=== PATIENT | female | born 1935 | race Caucasian/White ===

== ENCOUNTER 2017-07-22 13:17 | Inpatient (IN) | payer MEDICARE ==
[~2017-07-22] VITALS: Ht 162.6 cm; Wt 54.0 kg
--- NOTE | 2017-07-22 13:17 | NUR ---
pt refuses any intervention, pt keeps saying " i do not want to be here, I want to go to [facility]".
--- NOTE | 2017-07-22 14:56 | NUR ---
CALLED [facility] AND SPOKE TO KENTRELL THE DIRECTOR OF THE FACILITY, WHOM INFORMED ME THAT DR KOO SENT THE PT TO BE MEDICALLY CLEARED AND THEN PET EVAL. PT REFUSING MEDS/CARE AT THE FACILITY
--- NOTE | 2017-07-22 15:06 | NUR ---
bs= 177
--- NOTE | 2017-07-22 16:02 | NUR ---
selwyn here talking to the er md.
--- NOTE | 2017-07-22 17:45 | NUR ---
perineal hygiene provided . small bm, redness and rashes groin area, pressure ulcer x2 left buttock
--- NOTE | 2017-07-22 18:12 | NUR ---
transfered pt to floor in stable condition. pt refused food requesting only water with ice.
[2017-07-22 18:27] VITALS: BP 138/89
--- NOTE | 2017-07-22 18:27 | NUR ---
RECEIVED PT WITH NECROSIS ON HER RIGHT HEEL AND LEFT HEEL REDNESS ,SACRAL AREA REDNESS AND PARTIAL THICKNESS AND FULL THICKNESS LOSS NOTED,WOUND CARE AND AIR MATTRESS ORDERED
--- NOTE | 2017-07-22 18:27 | NUR ---
PT RECEIVED FROM ER VIA [facility] .PT IS CONFUSED AND ALERT TO HER SELF .V/S ARE STABLE .PT IS ON 72 HRS HOLD
[2017-07-22] MEDS ORDERED: MAG HYDROX/AL HYDROX/SIMETH 30 ML LIQUID UDC PO PRN (18:30)
[2017-07-22] MEDS ORDERED: ACETAMINOPHEN 325 MG TABLET PO PRN (18:30)
[2017-07-22] MEDS ORDERED: TEMAZEPAM 7.5 MG CAPSULE PO PRN (18:30)
[2017-07-22] MEDS ORDERED: MAGNESIUM HYDROXIDE 30 ML LIQUID UDC PO PRN (18:30)
--- NOTE | 2017-07-22 18:57 | NUR ---
PT WAS ADMITTED TO UNIT AT 1830 VIA GURNEY AT 1830. PT IS NON AMBULATORY AND NON COOPERATIVE. PT HAS MULTIPLE OPEN AREAS AND REDDNESS ON SACRAL AREA, OPEN AREA AND REDNESS ON R BUTTOX, THICK TONAILS ON BOTH FEET WITH BLACKENED AREAS AROUND TOENAILS, OPEN AREAS AND REDNESS ON BILATERAL GROIN, SKIN LOSS ON L HEEL, AND NECROTIC AREA ON R HEEL. PICTURES TAKEN AND PLACED IN CHART. AIR MATTRESS ORDERED, WOUND CONSULT ORDERED, PLACED PT ON TURN Q 2 HOURS SCHEDULE, DIETARY CONSULT ORDERED. PT IS CONFUSED, AGGITATED, SCREAMING. PT CAME FROM [facility], WAS THERE FOR ONE WEEK AND REFUSED MEDS AND CARE ALL WEEK. PT IS ON [address] KHAN NOTIFIED OF ADMISSION.
[2017-07-22 20:09] VITALS: BP 162/70
[2017-07-22] MEDS ORDERED: ASPI81TA31 PO (20:28)
[2017-07-22] MEDS ORDERED: FELO10TA3 PO (20:28)
[2017-07-22] MEDS ORDERED: METF500T4 PO (20:28)
[2017-07-22] MEDS: Z GUARD REMEDY PASTE 57 GM TUBE TOP SCH (20:28)
[2017-07-22] MEDS ORDERED: GLYB5TAB7 PO (20:28)
[2017-07-22] MEDS ORDERED: SIMV40TA5 PO (20:28)
[2017-07-22] MEDS ORDERED: BENA40TA2 PO (20:28)
[2017-07-22] MEDS ORDERED: MELO7.5T12 PO (20:48)
--- NOTE | 2017-07-22 21:00 | NUR ---
GPS: Pt.is uncooperative,refusing care despite explanation of importance. Easily irritable,agitated when being persuaded to let staff turn/reposition her. Pt.would go back on a supine position even after staff repositions her slightly. Poor insight to present situation. Safety emphasized. Will continue to monitor.
[2017-07-23] MEDS: Z GUARD REMEDY PASTE 57 GM TUBE TOP PRN (01:06)
[2017-07-23 07:30] VITALS: BP 138/63
[2017-07-23] MEDS: Z GUARD REMEDY PASTE 57 GM TUBE TOP SCH ×2 (09:00→20:03)
[2017-07-23] MEDS: BENAZEPRIL HCL 20 MG TABLET PO SCH (11:30)
[2017-07-23] MEDS ORDERED: MELOXICAM 7.5 MG TABLET PO PRN (11:30)
[2017-07-23 15:00] VITALS: BP 157/80
[2017-07-23] MEDS: QUETIAPINE FUMARATE 25 MG TABLET PO SCH (17:00)
[2017-07-23] MEDS: glyBURIDE 5 MG TABLET PO SCH ×2 (17:00→17:40)
[2017-07-23] MEDS: METFORMIN HCL 500 MG TABLET PO SCH ×2 (17:00→17:40)
[2017-07-23] MEDS: FELODIPINE 2.5 MG TAB.SR.24H PO SCH (20:02)
[2017-07-23] MEDS: SIMVASTATIN 40 MG TABLET PO SCH (20:03)
[2017-07-23 20:24] VITALS: BP 142/62
--- NOTE | 2017-07-24 02:28 | NUR ---
Patient compliant with HS medication, prn for sleep offered and administered as ordered with effective outcome, Will continue to prompt patient for medication compliance, however patient continues to refuse repositioning q two hours as an intervention to reduce complications related to pressure sores present on admission. Patient seems to disregard the importance of skin integrity and refuses to listen to staff providing care.
[2017-07-24 07:30] VITALS: BP 140/63
[2017-07-24] MEDS: METFORMIN HCL 500 MG TABLET PO SCH ×2 (08:00→17:07)
[2017-07-24] MEDS: glyBURIDE 5 MG TABLET PO SCH ×2 (08:00→17:07)
[2017-07-24] MEDS: QUETIAPINE FUMARATE 25 MG TABLET PO SCH ×2 (08:35→17:00)
[2017-07-24] MEDS: ASPIRIN 81 MG TAB.CHEW PO SCH (08:35)
[2017-07-24] MEDS: FELODIPINE 2.5 MG TAB.SR.24H PO SCH ×3 (08:36→23:27)
[2017-07-24] MEDS: BENAZEPRIL HCL 20 MG TABLET PO SCH (08:36)
[2017-07-24] MEDS: Z GUARD REMEDY PASTE 57 GM TUBE TOP SCH ×2 (08:37→21:22)
[2017-07-24 16:43] VITALS: BP 146/54
--- NOTE | 2017-07-24 18:10 | NUR ---
GPS: Nursing Notes: Destructive Behavior to Others: Patient is awake and responding to her name, resistant to care, refusing her medications, stated "I do not need it... Why I am here... There is nothing wrong with me...", loud and angry affect, refusing to be turn Q2hrs, pulling the pillows and throw them on the floor, "I don't need them, patient has wound on her sacral area, but she believes that there is nothing wrong with her, unable to formulate a plan for self care, continue with treatment plan.
[2017-07-24 20:42] VITALS: BP 144/58
[2017-07-24] MEDS: SIMVASTATIN 40 MG TABLET PO SCH (21:12)
--- NOTE | 2017-07-24 21:49 | NUR ---
PATIENT IN BED. A/O X 2. SHE CONTINUE REFUSING TO BE TURNED Q2HRS. SHE WAS NOTED WITH ANXIOUS MOOD, LABILE. UNCOOPERATIVE. SHE REFUSED FELODIPINE 10MG PO QHS; FOR B/P. MULTIPLE REDIRECTION WERE GIVEN YET REFUSED. HER B/P IS 144/58MMHG. HOWEVER, SHE TOOK SIMVASTATIN QHS. WILL CONTINUE TO MONITOR
--- NOTE | 2017-07-24 23:00 | NUR ---
RECEIVED PATIENT TRANSFERRED FROM U AT 2300. PATIENT WAS TRANSFERRED SAFELY INTO ROOM 217. REPORT RECEIVED FROM NURSE IN MENTAL HEALTH UNIT. PATIENT IS A/O X 2. PATIENT ON AIR MATTRESS. WOUND PRESENT IN SACRAL, BUTTOCKS: CLEANED, Z-GUARD AND MEPOLEX APPLIED, PICTURES TAKEN AND PLACED IN CHART. WOUND ON RIGHT HEEL, COLORATION IS BLACK, PICTURE TAKEN AND PLACED IN CHART. PATIENT IS UNCOOPERATIVE, VERY DEMANDING, ANXIOUS, AND LABILE. PATIENT'S BED IN LOCKED, LOW POSITION WITH SIDE RAILS UP X2. 1 TO 1 SITTER PRESENT AT BEDSIDE FOR SAFETY. PATIENT ON A 14-DAY HOLD, ENDING ON 08/04/17. COMFORT AND SAFETY WILL BE IMPLEMENTED THROUGHOUT SHIFT.
[2017-07-24 23:05] VITALS: BP 179/70
--- NOTE | 2017-07-24 23:20 | NUR ---
REDIRECTION PROVIDED SEVERAL TIMES ABOUT THE IMPORTANCE OF BP MEDICATION AND REPOSITIONING EVERY 2 HOURS BUT PATIENT CONTINUES TO REFUSE.
--- NOTE | 2017-07-24 23:20 | NUR ---
PATIENT REFUSES TO BE TURNED. PATIENT VERBALIZES "I WANT TO BE STRAIGHT, DON'T MOVE ME."
--- NOTE | 2017-07-24 23:20 | NUR ---
PATIENT'S VITAL SIGNS TAKEN: BP 179/70; HR 92; RR 20; SPO2 97%; T 98.0. NOTIFIED BY NURSE IN MHU DURING TRANSFER REPORT THAT PATIENT REFUSED TO TAKE FELODIPINE 10 MG PO QHS. PATIENT'S BP IN HIGH RANGE 179/70 WHEN CHECKED AT 2320. ATTEMPTED TO ADMINISTER FELODIPINE BUT PATIENT REFUSED. VERBALIZED TO PATIENT THE IMPORTANCE OF MEDICATION AND HER BP CAN BE DANGEROUS AND THAT THE MEDICATION WOULD HELP. PATIENT VERBALIZED, "I KNOW I HAVE HIGH BLOOD PRESSURE, AND I CAN WAIT TO TAKE THE MEDICATION IN THE MORNING. I DON'T WANT IT. ITS TOO MUCH MEDICATION. I DONT WANT TO TAKE SO MANY MEDICATION." CHARGE NURSE NOTIFIED. WILL CONTINUE TO MONITOR THE PATIENT.
--- NOTE | 2017-07-24 23:55 | NUR ---
PATIENT'S BP CHECKED: 155/56. PATIENT IN STABLE CONDITION. NO S/S OF DISTRESS. WILL CONTINUE TO MONITOR BP AND PATIENT.
[2017-07-25 00:41] VITALS: BP 155/56
[2017-07-25 04:54] VITALS: BP 128/60
--- NOTE | 2017-07-25 04:55 | NUR ---
PATIENT'S BLOOD PRESSURE STABLE, VITALS STABLE: 128/60, HR 85, T 98.6, 96% RA, RR 18.
[2017-07-25 08:24] VITALS: BP 133/57
[2017-07-25] MEDS: glyBURIDE 5 MG TABLET PO SCH ×2 (08:59→18:50)
[2017-07-25] MEDS: METFORMIN HCL 500 MG TABLET PO SCH ×4 (08:59→20:41)
[2017-07-25] MEDS: BENAZEPRIL HCL 20 MG TABLET PO SCH (08:59)
[2017-07-25] MEDS: ASPIRIN 81 MG TAB.CHEW PO SCH (09:00)
[2017-07-25] MEDS: QUETIAPINE FUMARATE 25 MG TABLET PO SCH ×2 (09:00→18:50)
[2017-07-25] MEDS: Z GUARD REMEDY PASTE 57 GM TUBE TOP SCH ×2 (09:02→21:12)
--- NOTE | 2017-07-25 09:30 | NUR ---
AWAKE NON COOPERATE BUT FOLLOW SIMPLE DIRECTION SOMETIMES NO PAIN OR SOB SAFETY PRECAUTION SITTER 1:1 AT BEDSIDE AND CLOSED OBSERVATION
[2017-07-25] MEDS: CLONAZEPAM 0.5 MG TABLET PO PRN (10:08)
--- NOTE | 2017-07-25 11:00 | NUR ---
RESTING QUIET AND WELL AT THIS TIME
[2017-07-25 13:00] VITALS: BP 117/43
--- NOTE | 2017-07-25 13:00 | NUR ---
REPOSITION DIAPER CHANGE AND REMEDY APPLY TO REDNESS SKIN RASTA GROIN AND SACRAL AREA MEPILEX CHANGE EAT LUNCH SMALL AMT BUT PO FLD GARCIA VERY WELL CALM AND COOPERATE AT THIS TIME
--- NOTE | 2017-07-25 14:00 | NUR ---
REFUSED LAB DRAW AGAIN AT THIS TIME ,WILL NOTIFY
[2017-07-25 15:00] VITALS: BP 132/53
--- NOTE | 2017-07-25 15:32 | NUR ---
Initial DC Plan: Pt arrived from [facility] assisted living [[address] [place] [address]; ]. SW will follow up facility to confirm they can accept pt upon discharge. SW will follow up with MD, patient, and patient's son Divya [[phone]] to discuss most appropriate discharge plans. SW will form a safe and proper discharge.
--- NOTE | 2017-07-25 17:00 | NUR ---
REFUSED TO EAT DINNER STATE TRIED WANT TO SLEEP NO SOB OR PAIN CLOSED OBSERVATION
--- NOTE | 2017-07-25 19:53 | NUR ---
RECEIVED SHIFT REPORT FROM PREVIOUS SHIFT NURSE. PATIENT IN STABLE CONDITION. NO S/S OF DISTRESS. ASKED PATIENT IF WE CAN TURN HER FOR COMFORT AND SHE REFUSED, VERBALIZING, "I LIKE TO LAY STRAIGHT IN BED". SITTER AT BEDSIDE. BED IN LOCKED/LOW POSITION WITH SIDE RAILS UP X2. SAFETY AND COMFORT WILL BE IMPLEMENTED THROUGHOUT SHIFT.
[2017-07-25 20:00] VITALS: BP 140/48
[2017-07-25] MEDS: SIMVASTATIN 40 MG TABLET PO SCH (20:48)
[2017-07-25] MEDS: FELODIPINE 2.5 MG TAB.SR.24H PO SCH (20:48)
--- NOTE | 2017-07-25 21:00 | NUR ---
PATIENT REFUSED PLENDIL 10 MG AND SIMVASTATIN 40 MG. VERBALIZED, "I DONT NEED BLOOD PRESSURE MEDICATION, I DONT HAVE HIGH BLOOD PRESSURE". EDUCATED PATIENT ABOUT IMPORTANCE OF MEDICATION COMPLIANCE. PATIENT CONTINUED TO BE UNCOOPERATIVE, AGITATED AND REFUSED MEDICATION.
--- NOTE | 2017-07-25 21:00 | NUR ---
METFORMIN 500 MG ADMINISTERED TO PATIENT. PATIENT REFUSED THE 1800 DOSE OF METFORMIN FROM PREVIOUS SHIFT. PATIENT DID NOT REFUSE AT 2100 AND WAS ADMINISTERED FOR PATIENT.
--- NOTE | 2017-07-26 05:34 | NUR ---
PATIENT SLEPT THROUGHOUT WITH NIGHT, ACCUMULATING APPROXIMATELY 6-8 HOURS OF SLEEP THROUGH THE NIGHT. PATIENT IS IN STABLE CONDITION, NO S/S OF DISTRESS. SITTER AT BEDSIDE THROUGHOUT SHIFT. PATIENT IS SAFE. CONTINUES TO BE UNCOOPERATIVE WITH CARE AND MEDICATION REGIME. PATIENT CONTINUES TO ALSO REFUSE REPOSITIONING. EDUCATION PROVIDED ABOUT IMPORTANCE OF MEDICATIONS PATIENT REFUSED AND REPOSITIONING. SAFETY AND COMFORT WAS PROVIDED THROUGHOUT SHIFT. BED IN LOCKED/LOW POSITION, BED ALARM ON, CALL LIGHT WITHIN REACH.
[2017-07-26] MEDS: QUETIAPINE FUMARATE 25 MG TABLET PO SCH ×3 (08:40→17:24)
[2017-07-26] MEDS: ASPIRIN 81 MG TAB.CHEW PO SCH (08:40)
[2017-07-26] MEDS: glyBURIDE 5 MG TABLET PO SCH ×2 (08:40→17:23)
[2017-07-26] MEDS: Z GUARD REMEDY PASTE 57 GM TUBE TOP SCH ×2 (08:45→21:09)
[2017-07-26] MEDS: FELODIPINE 2.5 MG TAB.SR.24H PO SCH ×2 (08:47→21:00)
[2017-07-26] MEDS: BENAZEPRIL HCL 20 MG TABLET PO SCH (08:47)
[2017-07-26 11:43] VITALS: BP 98/44
[2017-07-26] MEDS: METFORMIN HCL 500 MG TABLET PO SCH ×2 (17:23→17:36)
--- NOTE | 2017-07-26 17:57 | NUR ---
pt non compliant with evening medications, did not take metformin or seroquel, pt only took diabeta. Pt slept majority of shift, tolerated nutritional intake well. awake in bed at this time, 1:1 sitter maintained throughout shift. all safety and comfort measures attended to.
--- NOTE | 2017-07-26 19:30 | NUR ---
received to care, lying in bed, appearing suspicious, when engaged. 1:1 sitter remains at side, at all times, for safety. call light in reach. no distress noted. will continue to monitor closely.
[2017-07-26 20:00] VITALS: BP 158/52
[2017-07-26] MEDS: SIMVASTATIN 40 MG TABLET PO SCH (21:00)
--- NOTE | 2017-07-26 21:00 | NUR ---
pt refused to be repositioned. she is compliant with diaper change, and z guard ointment application.
--- NOTE | 2017-07-26 21:59 | NUR ---
pt refused all medications offered. as of now, she appears to be asleep. no distress noted. call light in reach, sitter at bedside. no distress noted. will continue to monitor closely.
[2017-07-27 05:00] VITALS: BP 171/59
--- NOTE | 2017-07-27 05:00 | NUR ---
pt is now awake. b/p is currently 171/59, hr 89. she continues to refuse antihypertensive meds, even when risks are explained. pt denies any headache, or lightheadedness. she also refused weekly wound photos, although she did allow wound care to be performed. sitter remains at bedside, for safety. will continue to monitor closely.
--- NOTE | 2017-07-27 05:38 | NUR ---
refused AM lab draw.
[2017-07-27] MEDS: ASPIRIN 81 MG TAB.CHEW PO SCH (08:27)
[2017-07-27] MEDS: METFORMIN HCL 500 MG TABLET PO SCH ×2 (08:27→18:51)
[2017-07-27] MEDS: glyBURIDE 5 MG TABLET PO SCH ×3 (08:27→18:37)
[2017-07-27] MEDS: BENAZEPRIL HCL 20 MG TABLET PO SCH (08:29)
[2017-07-27] MEDS: QUETIAPINE FUMARATE 25 MG TABLET PO SCH ×3 (08:29→18:38)
[2017-07-27] MEDS ORDERED: DEXTROSE 50% 50 ML DISP.SYRIN IV PRN (08:45)
[2017-07-27] MEDS: FELODIPINE 2.5 MG TAB.SR.24H PO SCH ×2 (09:00→21:00)
[2017-07-27] MEDS: Z GUARD REMEDY PASTE 57 GM TUBE TOP SCH ×2 (09:06→21:52)
[2017-07-27 09:20] LABS: BASOPHILS % (AUTO) 0.3 % (0.0-2.0); EOSINOPHILS # (AUTO) 0.1 K/uL (0.0-0.7); EOSINOPHILS % (AUTO) 0.7 % (0.0-7.0); HEMATOCRIT 43.4 % (37-47); HEMOGLOBIN 14.4 G/DL (12.0-16.0); LYMPHOCYTES # (AUTO) 2.1 K/UL (0.8-4.8); LYMPHOCYTES % (AUTO) 16.9 % (20.5-51.5); MEAN CORPUSCULAR HEMOGLOBIN 29.7 UUG (27.0-31.0); MEAN CORPUSCULAR HGB CONC 33 g/dL (32.0-37.0); MEAN CORPUSCULAR VOLUME 89.8 FL (81.0-99.0); MONOCYTES # (AUTO) 0.6 K/UL (0.1-1.30); MONOCYTES % (AUTO) 4.7 % (0.0-11.0); NEUTROPHILS # (AUTO) 9.9 K/UL (1.8-8.9); NEUTROPHILS % (AUTO) 77.4 % (38.5-71.5); PLATELET COUNT (AUTO) 280 K/UL (150-450); RED BLOOD CELL COUNT(AUTO) 4.83 MIL/UL (4.2-5.4); WHITE BLOOD COUNT (AUTO) 12.7 K/UL (4.0-11.2)
[2017-07-27 09:24] LABS: ALANINE AMINOTRANSFERASE 14 U/L (14-59); ALKALINE PHOSPHATASE 82 U/L (50-136); ASPARTATE AMINOTRANSFERASE 13 U/L (15-37); BILIRUBIN,TOTAL 0.7 mg/dL (0.2-1.0); CARBON DIOXIDE 29 mmol/L (21-32); CHLORIDE 100 mmol/L (98-107); CREATININE 0.7 mg/dL (0.6-1.3); MAGNESIUM 1.7 mg/dL (1.8-2.4); PHOSPHOROUS 2.9 mg/dL (2.5-4.9); POTASSIUM 3.9 mmol/L (3.5-5.1); TOTAL PROTEIN, SERUM 6.7 g/dL (6.4-8.2); UREA NITROGEN, BLOOD 17 mg/dL (7-18)
[2017-07-27 09:37] LABS: GLUCOSE 436 mg/dL (74-106)
[2017-07-27] MEDS ORDERED: SITAGLIPTIN PHOSPHATE 50 MG TABLET PO SCH (10:15)
[2017-07-27] MEDS: LINAGLIPTIN 5 MG TABLET PO SCH (12:13)
[2017-07-27] MEDS: BLOOD SUGAR DIAGNOSTIC 1 EACH STRIP VI SCH ×3 (12:13→20:47)
--- NOTE | 2017-07-27 13:15 | NUR ---
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 RECOMMENDATIONS MADE FOR SKIN PROTECTION AND WOUND CARE. PT IS AGITATED AND COMBATIVE AT TIMES. RECOMMEND SURGICAL CONSULT FOR SACRAL ULCER. PT WAS SEEN BY BUSINESS DEPARTMENT CHAIR FOR FEET. PT ON FIRST STEP MATTRESS. ALL SKIN PROTECTION MEASURES IN PLACE. WILL SEE PRYvan Osborn IN AGREEMENT WITH PLAN OF CARE. Addendum: 07/27/17 at 1317 by MAKENZIE PATEL RN Amended: Links added.
[2017-07-27 15:00] VITALS: BP 158/64
--- NOTE | 2017-07-27 15:06 | NUR ---
PT REFUSING TO BE REPOSITIONED THROUGHOUT SHIFT, COMPLIANT WITH INCONTINENT CARE. WOUND NURSE ASSESSED PT, HYDROGEL AND MEPILEX APPLIED TO WOUNDS ORDERED. PT ALLOWED BS TO BE TAKEN, 367, HOWEVER REFUSED NEW MEDICATION TRADJENTA. PT ASKED "WHY DO YOU CARE SO MUCH ABOUT ME? I AM FINE" EDUCATED PT ON BS AND RISK TO NOT TAKING MEDICATIONS. PT AGREED TO ALLOW TO RECHECK BS AT 1630. PT BEING TRANSFERRED TO MHU, REPORT GIVEN TO MHU NURSE
--- NOTE | 2017-07-27 16:24 | NUR ---
PT TRANSFERRED TO MHU BED 139A
--- NOTE | 2017-07-27 18:57 | NUR ---
PATIENT IS ALLERGY TO INSULIN TAKES METFORMIN FOR CONTROL
--- NOTE | 2017-07-27 19:01 | NUR ---
REC D PATIENT ALERT AND ALERT TIMES 2 PT NON COMPLIANT WITH MILIEU ORIENTED TO ROOM AND CALL SYSTEM PT UNABLE TO USE HANDS NEEDS ASSIST SKIN L BUTTOCKS WITH HYDROGEL STAGE IV PRESSURE SORES. PATIENT SAFE AND SIDE RAILS UP .
[2017-07-27 20:31] VITALS: BP 132/57
[2017-07-27] MEDS: SIMVASTATIN 40 MG TABLET PO SCH (21:00)
--- NOTE | 2017-07-27 21:00 | NUR ---
PATIENT REFUSED ALL HER QHS MEDICATION. HOWEVER, SHE AGREED TO HAVE HER BG CHECKS AFTER MULTIPLE REDIRECTIONS. BG AT APPROX 2030 WAS 349. SHE IS ON DIABETA 5MG PO BIDM; METFORMIN 500MG PO BIDM AND TRAJENTA 5MG PO QD. SHE IS ALSO SCHEDULE TO HAVE CBC, CMP. MAGNESIUM ans PHOSPHATE. TOMORROW MORNING. WILL RECHECK BS IN TWO HOURS.
--- NOTE | 2017-07-27 23:28 | NUR ---
PATIENT REFUSED TO HAVE HER BG RECHECKED. SHE IS SCHEDULE TO BE RIESE TOMORROW MORNING. WILL CONTINUE TO MONITOR.
[2017-07-28] MEDS: BLOOD SUGAR DIAGNOSTIC 1 EACH STRIP VI SCH ×4 (06:42→20:29)
--- NOTE | 2017-07-28 06:56 | NUR ---
PATIENT SLEPT FOR APPROX 4.30 HRS THROUGH THE NIGHT. SHE HAD A SHOWER THIS MORNING. SHE FIRST REFUSED HER ACCU CHECK, BUT AFTER MULTIPLE REDIRECTION BY TWO NURSING STAFF, SHE AGREED TO HAVE HER BG TAKEN. SHE ALSO AGREED TO HAVE HER BLOOD DRAWN AFTER MULTIPLE REDIRECTION; HOWEVER, NO SUCCESS IN GETTING BLOOD. SHE THEN REFUSED ANOTHER ATTEMPT. WILL CONTINUE TO MONITOR.
[2017-07-28 07:30] VITALS: BP 138/77
[2017-07-28] MEDS: METFORMIN HCL 500 MG TABLET PO SCH ×2 (08:00→17:29)
[2017-07-28] MEDS: glyBURIDE 5 MG TABLET PO SCH ×2 (08:00→17:29)
[2017-07-28] MEDS: BENAZEPRIL HCL 20 MG TABLET PO SCH (09:00)
[2017-07-28] MEDS: LINAGLIPTIN 5 MG TABLET PO SCH (09:00)
[2017-07-28] MEDS: FELODIPINE 2.5 MG TAB.SR.24H PO SCH ×2 (09:00→20:29)
[2017-07-28] MEDS: QUETIAPINE FUMARATE 25 MG TABLET PO SCH ×2 (09:00→17:30)
[2017-07-28] MEDS: ASPIRIN 81 MG TAB.CHEW PO SCH (09:01)
[2017-07-28] MEDS: Z GUARD REMEDY PASTE 57 GM TUBE TOP SCH ×2 (09:03→20:29)
[2017-07-28 16:06] VITALS: BP 142/67
[2017-07-28] MEDS: SIMVASTATIN 40 MG TABLET PO SCH (20:30)
[2017-07-28 20:31] VITALS: BP 145/71
--- NOTE | 2017-07-29 04:52 | NUR ---
NSG/GPS REPORT GIVEN TO SOULEYMANE CHARGE NURSE AT 2100 APPROX. ACCU CHECK OBTAINED, MEDICATION REFUSED. 0 PATIENT WAS TAKEN BY CHARGE NURSE 2ND FLOOR TO OVERFLOW 2ND FLOOR TO MAKE ACCOMMODATIONS FOR A NEW ADMISSION. PATIENT WAS TAKEN VIA HOSPITAL BED BY TWO CRANE RIGGER'S FROM 2ND FLOOR AND CHARGE NURSE. PATIENT WAS RETURNED VIA HOSPITAL BED AT APPROX. 2245 FROM 2ND FLOOR BY CHARGE NURSE AND TWO CRANE RIGGER'S. STAFF ADJUSTED AIR MATTRESS PATIENT ATTENDED TO, HOWEVER CONTINUED TO REFUSED TO TURN ON HER SIDE. CONTINUE TO MONITOR TO ENSURE PATIENT WELL BEING WELL TEACH THE IMPORTANCE OF MEDICATION, CARE, COMPLIANCE.
[2017-07-29 07:30] VITALS: BP 124/52
[2017-07-29] MEDS: BLOOD SUGAR DIAGNOSTIC 1 EACH STRIP VI SCH ×4 (07:45→20:34)
[2017-07-29] MEDS: glyBURIDE 5 MG TABLET PO SCH ×2 (08:56→17:23)
[2017-07-29] MEDS: ASPIRIN 81 MG TAB.CHEW PO SCH (08:56)
[2017-07-29] MEDS: METFORMIN HCL 500 MG TABLET PO SCH ×2 (08:56→17:23)
[2017-07-29] MEDS: QUETIAPINE FUMARATE 25 MG TABLET PO SCH ×2 (08:57→17:23)
[2017-07-29] MEDS: Z GUARD REMEDY PASTE 57 GM TUBE TOP SCH ×2 (08:57→20:35)
[2017-07-29] MEDS: LINAGLIPTIN 5 MG TABLET PO SCH (09:00)
[2017-07-29] MEDS: FELODIPINE 2.5 MG TAB.SR.24H PO SCH ×2 (09:00→20:34)
[2017-07-29] MEDS: BENAZEPRIL HCL 20 MG TABLET PO SCH (09:00)
--- NOTE | 2017-07-29 09:30 | NUR ---
PT IS AWAKE, SOMEWHAT IRRITABLE AND RESISTANT TO CARE. COMPLIANT WITH SELECT MEDICATION, REFUSED B/P MEDICATIONS DESPITE EDUCATION. REMAINS WITH POOR APPETITE. PT ON AIR MATTRESS, UNCOOPERATIVE WITH TURN AND REPOSITION. NO ACUTE DISTRESS NOTED.
--- NOTE | 2017-07-29 12:00 | NUR ---
PT BLOOD SUGAR 396MG/DL, NO S/S HYPERGLYCEMIA NOTED. WILL NOTIFY SUMA DANIELS. NO ACUTE DISTRESS NOTED AT THIS TIME.
--- NOTE | 2017-07-29 12:30 | NUR ---
pt urine collected via bedpan and taken to lab urine culture.
[2017-07-29 15:00] VITALS: BP 105/61
--- NOTE | 2017-07-29 15:32 | NUR ---
blood sugar re-checked 327mg/dl, no sliding scale noted due to pt allergy. Dr Corral was made aware no order for interventions. Will monitor pt diet and provide education. no s/s hyperglycemian noted.
[2017-07-29 20:18] VITALS: BP 136/55
[2017-07-29] MEDS: SIMVASTATIN 40 MG TABLET PO SCH (20:35)
--- NOTE | 2017-07-29 20:40 | NUR ---
Pt REFUSED ALL HS MEDS, AND YELLED, "I DON'T NEED THEM!! I DON'T NEED ANY OF THEM!" Pt EDUCATED ON RISKS AND BENEFITS OF ALL HS MEDICATIONS, Pt STILL REFUSED DESPITE ENCOURAGEMENT AND PROMPTING. Pt REFUSED TO LET RN ASSESS HER SKIN, SPECIFICALLY HER SACRAL AREA, Pt YELLED REPEATEDLY, "DON'T YOU TOUCH ME I'M FINE!". ANXIOUS AND RESISTANT TO CARE, Pt ALSO REFUSED TO BE REPOSITIONED, AND BECAME PHYSICALLY AGGRESSIVE WHEN STAFF TRIED TO DO SO. WILL CONTINUE TO ENCOURAGE REPOSITIONING AND ATTEMPT AGAIN LATER IN THE SHIFT AFTER Pt HAS CALMED. SOLAR SALES ADVISOR AWARE.
--- NOTE | 2017-07-29 21:38 | NUR ---
Pt REFUSED PT. Pt EDUCATED ON THE REASON FOR THE ORDER AND THE BENEFITS OF HAVING THE CT, Pt STILL REFUSED. BETTING AGENCY MANAGERCIARRA PHILLIPS, WILL ENDORSE TO DAY SHIFT RN. Addendum: 07/29/17 at 2200 by INNA WIN RN Pt REFUSED CT AT 1954
[2017-07-30] MEDS: BLOOD SUGAR DIAGNOSTIC 1 EACH STRIP VI SCH ×4 (06:38→20:31)
--- NOTE | 2017-07-30 06:57 | NUR ---
Pt REFUSED TO BE REPOSITIONED ALL SHIFT, Pt REMAINS EXTREMELY RESISTANT TO CARE AND BECOMES AGGRESSIVE AND COMBATIVE WITH CARE. 2 CNAs AND 2 RNs REQUIRED TO CHANGE Pt's DIAPER AND PROVIDE SKIN AND WOUND CARE. SACRAL AREA CLEANSED WITH SOAP AND WATER, PATTED DRY, HYDROGEL AND MEPILEX APPLIED. Z GUARD APPLIED TO ALL OTHER AREAS OF BUTTOCKS AND (R) HEEL.
[2017-07-30 07:30] VITALS: BP 112/50
[2017-07-30] MEDS: Z GUARD REMEDY PASTE 57 GM TUBE TOP SCH ×2 (09:00→20:30)
[2017-07-30] MEDS: LINAGLIPTIN 5 MG TABLET PO SCH (09:00)
[2017-07-30] MEDS: QUETIAPINE FUMARATE 25 MG TABLET PO SCH ×3 (09:59→17:50)
[2017-07-30] MEDS: ASPIRIN 81 MG TAB.CHEW PO SCH (10:00)
[2017-07-30] MEDS: FELODIPINE 2.5 MG TAB.SR.24H PO SCH ×2 (10:02→20:29)
[2017-07-30] MEDS: METFORMIN HCL 500 MG TABLET PO SCH ×2 (10:02→17:49)
[2017-07-30] MEDS: BENAZEPRIL HCL 20 MG TABLET PO SCH (10:03)
[2017-07-30] MEDS: glyBURIDE 5 MG TABLET PO SCH ×2 (10:04→17:50)
[2017-07-30] MEDS: CLONAZEPAM 0.5 MG TABLET PO PRN (10:04)
[2017-07-30 15:00] VITALS: BP 91/39
[2017-07-30] MEDS: HALOPERIDOL LACTATE 5 MG/1 ML VIAL IM PRN (17:56)
[2017-07-30] MEDS: SIMVASTATIN 40 MG TABLET PO SCH (20:30)
--- NOTE | 2017-07-30 20:36 | NUR ---
Patient continues to be resistant to care. Patient refused HS medication stated that she did not need anything for cholesterol, her blood pressure is fine and would like to be left alone. Staff discussed the importance of turning her to prevent further complications, patient stated she was fine and did not need to be turned. Patient presents poor insight, poor judgement is alert but disorganized. Will continue to monitor closely as well as continue to make attempts to seek cooperation from patient to allow staff to provide proper care.
[2017-07-30 20:55] VITALS: BP 123/53
[2017-07-31 07:30] VITALS: BP 137/68
[2017-07-31] MEDS: BLOOD SUGAR DIAGNOSTIC 1 EACH STRIP VI SCH ×4 (07:33→20:13)
[2017-07-31] MEDS: METFORMIN HCL 500 MG TABLET PO SCH ×2 (08:00→17:01)
[2017-07-31] MEDS: glyBURIDE 5 MG TABLET PO SCH ×2 (08:00→17:01)
[2017-07-31] MEDS: ASPIRIN 81 MG TAB.CHEW PO SCH (08:29)
[2017-07-31] MEDS: LINAGLIPTIN 5 MG TABLET PO SCH (08:30)
[2017-07-31] MEDS: BENAZEPRIL HCL 20 MG TABLET PO SCH (08:30)
[2017-07-31] MEDS: QUETIAPINE FUMARATE 25 MG TABLET PO SCH ×2 (08:30→16:50)
[2017-07-31] MEDS: FELODIPINE 2.5 MG TAB.SR.24H PO SCH ×2 (08:30→20:14)
[2017-07-31] MEDS: Z GUARD REMEDY PASTE 57 GM TUBE TOP SCH ×2 (08:31→20:13)
[2017-07-31] MEDS: HALOPERIDOL LACTATE 5 MG/1 ML VIAL IM PRN ×2 (08:34→17:04)
--- NOTE | 2017-07-31 13:33 | NUR ---
GPS: Nursing Notes: Wound/Skin Management: Patient is awake and responding to her name, impaired judgment, poor anger management, resistant with nursing care, refusing to reposition Q2hrs, throwing the pillows on the floor, shouting "You are crazy... There is nothing wrong with me...", believes that she is fine, redirected and reoriented during shift, but patient continue to be resistant with nursing care, continue to return to her original position, air mattress on bed, unable to formulate a plan for self care, refusing her medications, continue with treatment plan.
[2017-07-31 15:20] VITALS: BP 141/78
[2017-07-31 20:05] VITALS: BP 153/73
[2017-07-31] MEDS: SIMVASTATIN 40 MG TABLET PO SCH (20:13)
[2017-07-31 21:00] VITALS: BP 128/77
[2017-08-01] MEDS: BLOOD SUGAR DIAGNOSTIC 1 EACH STRIP VI SCH ×4 (06:16→21:01)
--- NOTE | 2017-08-01 06:38 | NUR ---
GPS:Patient is awake Laying in bed after showered this morning. a/o x2 , cooperative with medication and care. Reposition Q2hrs, ON air mattress on bed, Patient unable to formulate a plan for self care, compliant with am care and blood sugar check. slept 8 hrs through the night. continue with treatment plan.
[2017-08-01 07:13] LABS: BASOPHILS # (AUTO) 0.1 K/uL (0.0-8.0); BASOPHILS % (AUTO) 0.8 % (0.0-2.0); EOSINOPHILS # (AUTO) 0.1 K/uL (0.0-0.7); EOSINOPHILS % (AUTO) 0.7 % (0.0-7.0); HEMATOCRIT 42.5 % (31.2-41.9); HEMOGLOBIN 14.3 g/dL (10.9-14.3); LYMPHOCYTES # (AUTO) 1.8 K/uL (20.0-40.0); MEAN CORPUSCULAR HEMOGLOBIN 30.2 uug (24.7-32.8); MEAN CORPUSCULAR HGB CONC 34 g/dL (32.3-35.6); MEAN CORPUSCULAR VOLUME 89.7 fL (75.5-95.3); MONOCYTES % (AUTO) 9.6 % (0.0-11.0); NEUTROPHILS # (AUTO) 7.2 K/uL (1.8-8.9); NEUTROPHILS % (AUTO) 70.9 % (38.5-71.5); PLATELET COUNT (AUTO) 253 K/uL (179-408); RED BLOOD CELL COUNT(AUTO) 4.74 MIL/uL (3.63-4.92); WHITE BLOOD COUNT (AUTO) 10.2 K/uL (3.8-11.8)
[2017-08-01 07:16] LABS: CARBON DIOXIDE 30 mmol/L (21-32); CHLORIDE 100 mmol/L (98-107); CREATININE 0.5 mg/dL (0.6-1.3); GLUCOSE 287 mg/dL (74-106); MAGNESIUM 1.5 mg/dL (1.8-2.4); PHOSPHOROUS 3.1 mg/dL (2.5-4.9); POTASSIUM 3.6 mmol/L (3.5-5.1); UREA NITROGEN, BLOOD 15 mg/dL (7-18)
[2017-08-01 07:30] VITALS: BP 129/63
[2017-08-01] MEDS: METFORMIN HCL 500 MG TABLET PO SCH ×3 (08:00→20:58)
[2017-08-01] MEDS: Z GUARD REMEDY PASTE 57 GM TUBE TOP SCH ×2 (08:27→21:01)
[2017-08-01] MEDS: FELODIPINE 2.5 MG TAB.SR.24H PO SCH ×2 (09:00→21:00)
[2017-08-01] MEDS: ASPIRIN 81 MG TAB.CHEW PO SCH (09:00)
[2017-08-01] MEDS: LINAGLIPTIN 5 MG TABLET PO SCH (09:47)
[2017-08-01] MEDS: BENAZEPRIL HCL 20 MG TABLET PO SCH (09:48)
[2017-08-01] MEDS: QUETIAPINE FUMARATE 25 MG TABLET PO SCH (09:48)
[2017-08-01 15:29] VITALS: BP 108/50
[2017-08-01] MEDS: QUETIAPINE FUMARATE 100 MG TABLET PO SCH (16:47)
[2017-08-01] MEDS: HALOPERIDOL LACTATE 5 MG/1 ML VIAL IM PRN (16:49)
[2017-08-01] MEDS ORDERED: QUETIAPINE FUMARATE 25 MG TABLET PO SCH (17:00)
[2017-08-01] MEDS: glyBURIDE 5 MG TABLET PO SCH ×2 (17:07→20:59)
--- NOTE | 2017-08-01 17:35 | NUR ---
GPS: Nursing Notes: Wound/Skin Management: Patient is awake and responding to her name, loud and angry affect, resistant with nursing care, refusing wound care, refusing to be turn Q2hrs, throwing the reposition pillows to the floor, removing her Mepilex dressing, believes that there is nothing wrong with her sacral area, "You are keeping me here, so you can get money from me....", "I am not crazy... You are crazy..", refusing her medications, "You are making money from those pills....", not compliant with her medications and wound treatment consistently, impaired judgment, poor insight, confused at times, unable to formulate a plan for self care, continue with treatment plan.
[2017-08-01 20:00] VITALS: BP 133/55
[2017-08-01] MEDS: SIMVASTATIN 40 MG TABLET PO SCH (21:00)
[2017-08-01] MEDS: MAGNESIUM OXIDE 400 MG TABLET PO SCH (21:00)
--- NOTE | 2017-08-01 21:00 | NUR ---
RECEIVED Pt IN HER ROOM AWAKE ON LOW AIR LOSS MATTRESS. Pt BEGAN YELLING SOON RN ENTERED THE ROOM, "NO, NO, NO, NO!!". Pt DID NOT WANT HER BLOOD SUGAR CHECKED AND SCREAMED, "I'VE ALREADY HAD TOO MANY MEDICATIONS, I'M OK, LEAVE ME ALONE!" AFTER EXTENSIVE ENCOURAGEMENT AND PROMPTING, Pt ALLOWED TO HAVE HER BLOOD SUGAR CHECKED IF SHE GOT A BRAND NEW BOTTLE OF WATER. BOTTLE OF WATER GIVEN TO Pt, AND BLOOD SUGAR RESULTED AT 424. DR ZAPATA NOTIFIED OF RESULT AND ORDERED TO GIVE THE DIABETIC MEDS SHE REFUSED AT 1700-METFORMIN 1000mg AND DIABETA 10mg, ADMINISTERED PER MD ORDER AT 2057 AFTER EXTENSIVE PROMPTING. BS RE-CHECK AT 2315 RESULTED AT 433, Pt BECAME PHYSICALLY AGGRESSIVE AND SHOUTED AT RN TO "GET OUT!". RN LEFT TO LET THE Pt CALM AND CAME BACK 15 MINUTES LATER TO EDUCATE HER ON THE IMPORTANCE OF GETTING HER BLOOD SUGAR CHECKED D/T HER DIABETES. Pt RESPONDED, "THE DOCTOR DOESN'T NEED TO WORRY ABOUT ME I'M FINE." WILL ATTEMPT TO RE-CHECK. Pt AGGRESSIVE AND COMBATIVE WITH CARE, RESISTANT TO Tx PLAN AND SELF CARE. NON-COMPLIANT WITH REPOSITIONING, Pt WILL GET REPOSITIONED, THEN TURN TO HER RIGHT SIDE IMMEDIATELY AFTER REPOSITIONING. SKIN CARE PROVIDED WITH 3 STAFF PRESSENT Pt IS RESISTANT TO CARE. Pt REMAINS LABILE AND ANXIOUS, REFUSED PRN. VS STABLE AT THIS TIME, Pt DENIES PAIN. WILL CONTINUE TO CLOSELY MONITOR.
--- NOTE | 2017-08-02 02:21 | NUR ---
AT 0115 Pt YELLED OUT FOR THE NURSE, AT THAT TIME Pt ALLOWED STAFF TO REPOSITION HER. DIAPER WAS CHANGED, SKIN AND WOUND CARE PROVIDED. SOILED MEPILEX REMOVED FROM SACRUM AND (R) LOWER BUTTOCK, AREA CLEANSED WITH SOAP AND WATER, PATTED DRY, HYDROGEL APPLIED, AND NEW MEPILEX PLACED TO BOTH AREAS ORDERED. Pt TOLERATED WELL. BONY PROMINENCES PADDED, BLOOD SUGAR RE-CHECK AT 0130 IS 357, DOWN FROM 424 AND 433. Pt DENIES ANY S/S R/T HYPERGLYCEMIA. WILL CONTINUE TO CLOSELY MONITOR.
[2017-08-02 07:30] VITALS: BP 126/56
[2017-08-02] MEDS: BLOOD SUGAR DIAGNOSTIC 1 EACH STRIP VI SCH ×4 (07:43→20:52)
[2017-08-02] MEDS: Z GUARD REMEDY PASTE 57 GM TUBE TOP SCH ×2 (08:10→21:28)
[2017-08-02] MEDS: FELODIPINE 2.5 MG TAB.SR.24H PO SCH ×2 (09:00→21:00)
[2017-08-02] MEDS: ASPIRIN 81 MG TAB.CHEW PO SCH (09:00)
[2017-08-02] MEDS: BENAZEPRIL HCL 20 MG TABLET PO SCH (09:48)
[2017-08-02] MEDS: METFORMIN HCL 500 MG TABLET PO SCH ×2 (09:48→17:43)
[2017-08-02] MEDS: glyBURIDE 5 MG TABLET PO SCH ×2 (09:48→17:43)
[2017-08-02] MEDS: LINAGLIPTIN 5 MG TABLET PO SCH (09:48)
[2017-08-02] MEDS: QUETIAPINE FUMARATE 100 MG TABLET PO SCH ×2 (09:48→16:49)
[2017-08-02 16:49] VITALS: BP 110/56
[2017-08-02 20:13] VITALS: BP 115/53
[2017-08-02] MEDS: MAGNESIUM OXIDE 400 MG TABLET PO SCH (20:55)
[2017-08-02] MEDS: SIMVASTATIN 40 MG TABLET PO SCH (20:55)
--- NOTE | 2017-08-03 02:12 | NUR ---
RECEIVED PATIENT IN HER BED. SHE IS A/O X 2. SHE REMAINS ON AN AIR MATTRESS DUE TO STAGE 4 ULCER IN SACRAL AREA. PATIENT ALSO ON TURNED AND REPOSITION Q2HRS, HOWEVER, SHE REMAINS UN-COMPLIANT. PT ALSO REFUSED FELODIPINE 10MG PO QHS FOR HTN. HER B/P IS 115/53MMHG.
[2017-08-03] MEDS: BLOOD SUGAR DIAGNOSTIC 1 EACH STRIP VI SCH ×4 (07:08→21:00)
[2017-08-03 08:02] VITALS: BP 126/56
[2017-08-03] MEDS: ASPIRIN 81 MG TAB.CHEW PO SCH (09:37)
[2017-08-03] MEDS: BENAZEPRIL HCL 20 MG TABLET PO SCH (09:38)
[2017-08-03] MEDS: QUETIAPINE FUMARATE 100 MG TABLET PO SCH ×2 (09:39→18:02)
[2017-08-03] MEDS: LINAGLIPTIN 5 MG TABLET PO SCH (09:39)
[2017-08-03] MEDS: FELODIPINE 2.5 MG TAB.SR.24H PO SCH ×2 (09:39→21:00)
[2017-08-03] MEDS: glyBURIDE 5 MG TABLET PO SCH ×2 (09:42→18:02)
[2017-08-03] MEDS: METFORMIN HCL 500 MG TABLET PO SCH ×2 (09:43→18:02)
[2017-08-03] MEDS: Z GUARD REMEDY PASTE 57 GM TUBE TOP SCH ×2 (09:58→21:08)
--- NOTE | 2017-08-03 10:00 | NUR ---
RECEIVED PATIENT IN HER BED. SHE IS A/O X 2. SHE REMAINS ON AN AIR MATTRESS DUE TO STAGE 4 ULCER IN SACRAL AREA, DRESSING CHANGED DONE, TURNED AND REPOSITION Q2HRS, NO C/O PAIN OR DISCOMFORT NOTED. PATIENT NEED LOTS OF PROMPTING WITH MEDICATIONS, OFFERED X 2 AND TOOK MEDS WITH APPLE SAUCE. WILL CONTINUE TO MONITOR FOR SAFETY AND NEEDS.
[2017-08-03 15:49] VITALS: BP 98/42
[2017-08-03 20:29] VITALS: BP 108/45
[2017-08-03] MEDS: SIMVASTATIN 40 MG TABLET PO SCH (21:00)
[2017-08-03] MEDS: MAGNESIUM OXIDE 400 MG TABLET PO SCH (21:00)
--- NOTE | 2017-08-03 21:57 | NUR ---
RECEIVED PATIENT IN HER BED. SHE IS A/O X 2. SHE IS CALM AT THIS TIME. DEPRESSED MOOD NOTED. SHE REMAINS ON AIR MATTRESS DUE TO STAGE 4 ULCER IN SACRAL AREA, SHE ALSO PRESENTS WITH EXCORIATION IN GROIN AREA. Z- GURD CREAM, HYDROGEL, MEPLEX DRESSING CHANGES FREQUENTLY WITH TURNED AND REPOSITION Q2HRS AND PRN. NO C/O PAIN OR DISCOMFORT NOTED OR REPORTED BY PT. PATIENT REFUSED ALL HER QHS MEDICATION INCLUDING ACCU-CHECKS. PT IS REISE; HOWEVER, SHE DOES NOT HAVE ANY PSYCH MEDS AT [facility]. WILL CONTINUE TO MONITOR FOR SAFETY ANS SKIN INTEGRITY
[2017-08-04] MEDS: BLOOD SUGAR DIAGNOSTIC 1 EACH STRIP VI SCH ×4 (07:08→21:23)
[2017-08-04 07:30] VITALS: BP 147/58
--- NOTE | 2017-08-04 07:37 | NUR ---
NEW PICTURES WERE TAKEN OF PATIENT'S SKIN
[2017-08-04] MEDS: QUETIAPINE FUMARATE 100 MG TABLET PO SCH ×2 (08:35→18:05)
[2017-08-04] MEDS: METFORMIN HCL 500 MG TABLET PO SCH ×2 (08:35→18:05)
[2017-08-04] MEDS: glyBURIDE 5 MG TABLET PO SCH ×2 (08:35→18:05)
[2017-08-04] MEDS: ASPIRIN 81 MG TAB.CHEW PO SCH (08:35)
[2017-08-04] MEDS: BENAZEPRIL HCL 20 MG TABLET PO SCH (08:36)
[2017-08-04] MEDS: LINAGLIPTIN 5 MG TABLET PO SCH (08:38)
[2017-08-04] MEDS: Z GUARD REMEDY PASTE 57 GM TUBE TOP SCH ×2 (08:59→21:22)
[2017-08-04] MEDS: FELODIPINE 2.5 MG TAB.SR.24H PO SCH ×2 (08:59→20:32)
[2017-08-04 15:00] VITALS: BP 93/41
[2017-08-04] MEDS: SIMVASTATIN 40 MG TABLET PO SCH (20:30)
[2017-08-04] MEDS: MAGNESIUM OXIDE 400 MG TABLET PO SCH (20:37)
[2017-08-04 20:50] VITALS: BP 121/51
[2017-08-05] MEDS: BLOOD SUGAR DIAGNOSTIC 1 EACH STRIP VI SCH ×4 (06:30→20:24)
[2017-08-05 07:30] VITALS: BP 113/50
[2017-08-05] MEDS: QUETIAPINE FUMARATE 100 MG TABLET PO SCH ×2 (08:18→18:06)
[2017-08-05] MEDS: METFORMIN HCL 500 MG TABLET PO SCH ×2 (08:19→18:06)
[2017-08-05] MEDS: ASPIRIN 81 MG TAB.CHEW PO SCH (08:19)
[2017-08-05] MEDS: glyBURIDE 5 MG TABLET PO SCH ×2 (08:19→18:07)
[2017-08-05] MEDS: LINAGLIPTIN 5 MG TABLET PO SCH (08:20)
[2017-08-05] MEDS: BENAZEPRIL HCL 20 MG TABLET PO SCH (08:35)
[2017-08-05] MEDS: Z GUARD REMEDY PASTE 57 GM TUBE TOP SCH ×2 (08:35→20:15)
[2017-08-05] MEDS: FELODIPINE 2.5 MG TAB.SR.24H PO SCH ×2 (08:36→20:18)
[2017-08-05 15:24] VITALS: BP 109/50
[2017-08-05 20:07] VITALS: BP 115/58
[2017-08-05] MEDS: MAGNESIUM OXIDE 400 MG TABLET PO SCH (20:14)
[2017-08-05] MEDS: SIMVASTATIN 40 MG TABLET PO SCH (20:14)
[2017-08-06] MEDS: BLOOD SUGAR DIAGNOSTIC 1 EACH STRIP VI SCH ×4 (06:36→20:55)
--- NOTE | 2017-08-06 06:46 | NUR ---
GPS:Patient continues to be resistant to care. Staff discussed the importance of turning her to prevent further complications. Patient presents poor insight, poor judgement is alert but disorganized. Will continue to monitor closely. wound care done this morning. slept 7:30 hrs through the night. assisted to turn q 2hrs but patient try to pull pillow to go back on her back. continue monitoring for skin safety.
[2017-08-06 07:42] VITALS: BP 120/54
[2017-08-06] MEDS: ASPIRIN 81 MG TAB.CHEW PO SCH (08:11)
[2017-08-06] MEDS: METFORMIN HCL 500 MG TABLET PO SCH ×3 (08:11→17:15)
[2017-08-06] MEDS: glyBURIDE 5 MG TABLET PO SCH ×3 (08:11→17:15)
[2017-08-06] MEDS: LINAGLIPTIN 5 MG TABLET PO SCH (08:12)
[2017-08-06] MEDS: QUETIAPINE FUMARATE 100 MG TABLET PO SCH ×2 (08:12→17:14)
[2017-08-06] MEDS: BENAZEPRIL HCL 20 MG TABLET PO SCH (08:12)
[2017-08-06] MEDS: Z GUARD REMEDY PASTE 57 GM TUBE TOP SCH ×2 (08:13→20:27)
[2017-08-06] MEDS: FELODIPINE 2.5 MG TAB.SR.24H PO SCH ×2 (08:13→20:28)
[2017-08-06 16:37] VITALS: BP 100/48
--- NOTE | 2017-08-06 17:53 | NUR ---
GPS RN PT REFUSED GLUCOPHAGE AND DIABETA DESPITE ENCOURAGEMENT AND TEACHING. PT STATED "I DON'T WANT IT I'M TIRED OF TAKING MEDICATIONS".
[2017-08-06 20:20] VITALS: BP 98/45
[2017-08-06] MEDS: SIMVASTATIN 40 MG TABLET PO SCH (20:27)
[2017-08-06] MEDS: MAGNESIUM OXIDE 400 MG TABLET PO SCH (20:27)
--- NOTE | 2017-08-06 20:55 | NUR ---
gps: patient refused blood sugar and all hs po meds.
--- NOTE | 2017-08-07 06:14 | NUR ---
GPS: PATIENT REMAIN UNCOOPERATIVE WITH MEDICATION, COMPLIANT WITH NURSING CARE.SLEPT 0 HRS THROUGH THE NIGHT.REFUSED ALL PO MEDICATION THROUGH THE NIGHT.
[2017-08-07] MEDS: BLOOD SUGAR DIAGNOSTIC 1 EACH STRIP VI SCH ×4 (06:42→20:31)
[2017-08-07 07:30] VITALS: BP 139/48
[2017-08-07] MEDS: LINAGLIPTIN 5 MG TABLET PO SCH (08:15)
[2017-08-07] MEDS: BENAZEPRIL HCL 20 MG TABLET PO SCH (08:15)
[2017-08-07] MEDS: FELODIPINE 2.5 MG TAB.SR.24H PO SCH ×2 (08:15→21:00)
[2017-08-07] MEDS: QUETIAPINE FUMARATE 100 MG TABLET PO SCH ×2 (08:15→17:00)
[2017-08-07] MEDS: ASPIRIN 81 MG TAB.CHEW PO SCH (08:15)
[2017-08-07] MEDS: Z GUARD REMEDY PASTE 57 GM TUBE TOP SCH ×2 (08:16→20:26)
[2017-08-07] MEDS: HALOPERIDOL LACTATE 5 MG/1 ML VIAL IM PRN ×3 (08:16→17:25)
[2017-08-07 16:34] VITALS: BP 108/52
[2017-08-07] MEDS: glyBURIDE 5 MG TABLET PO SCH (17:22)
[2017-08-07] MEDS: METFORMIN HCL 500 MG TABLET PO SCH (17:22)
[2017-08-07 20:09] VITALS: BP 134/48
[2017-08-07] MEDS: MAGNESIUM OXIDE 400 MG TABLET PO SCH (21:00)
[2017-08-07] MEDS: SIMVASTATIN 40 MG TABLET PO SCH (21:00)
--- NOTE | 2017-08-07 21:37 | NUR ---
PATIENT RECEIVED IN BED AWAKE. PATIENT CONTINUES TO BE RESISTANT WITH CARE/MEDICATION/REPOSITIONING. PATIENT EDUCATED ON THE IMPORTANCE ON REPOSITIONING TO PREVENT FURTHER COMPLICATIONS PATIENT CONTINUES TO REMOVE PILLOWS IS RESISTANT TO CARE. REPOSITION EVERY 2 HOURS OR NEEDED. PATIENT HAS POOR JUDGEMENT, POOR INSIGHT. PATIENT REFUSED MEDICATION " NO." EXPLAINED THE IMPORTANCE OF TAKING MEDICATION, CONTINUES TO REFUSE. BED IN LOWEST POSITION, BED LOCKED, AND BED ALARM ON WHILE IN BED. ACCUCHECK 236 MG/DL NO SLIDING SCALE NOTED, CONTINUE TO MONITOR NO S/S OF HYPO/HYPERGLYCEMIA NOTED WILL CONTINUE TO MONITOR.
[2017-08-08] MEDS: BLOOD SUGAR DIAGNOSTIC 1 EACH STRIP VI SCH ×4 (06:43→20:38)
[2017-08-08 07:30] VITALS: BP 123/61
[2017-08-08] MEDS: LINAGLIPTIN 5 MG TABLET PO SCH (08:31)
[2017-08-08] MEDS: QUETIAPINE FUMARATE 100 MG TABLET PO SCH ×2 (08:31→17:14)
[2017-08-08] MEDS: FELODIPINE 2.5 MG TAB.SR.24H PO SCH ×2 (08:32→20:26)
[2017-08-08] MEDS: METFORMIN HCL 500 MG TABLET PO SCH ×2 (08:32→17:15)
[2017-08-08] MEDS: BENAZEPRIL HCL 20 MG TABLET PO SCH (08:32)
[2017-08-08] MEDS: ASPIRIN 81 MG TAB.CHEW PO SCH (08:32)
[2017-08-08] MEDS: glyBURIDE 5 MG TABLET PO SCH ×2 (08:32→17:15)
[2017-08-08] MEDS: Z GUARD REMEDY PASTE 57 GM TUBE TOP SCH ×2 (08:33→20:27)
[2017-08-08 16:52] VITALS: BP 120/56
[2017-08-08] MEDS: Z GUARD REMEDY PASTE 57 GM TUBE TOP PRN (17:15)
[2017-08-08] MEDS: MAGNESIUM OXIDE 400 MG TABLET PO SCH (20:22)
[2017-08-08] MEDS: SIMVASTATIN 40 MG TABLET PO SCH (20:22)
[2017-08-08] MEDS: CLONAZEPAM 0.5 MG TABLET PO PRN (20:23)
[2017-08-08 20:29] VITALS: BP 109/52
--- NOTE | 2017-08-08 20:45 | NUR ---
PATIENT RECEIVED IN BED AWAKE. PATIENT CONTINUES TO BE RESISTANT WITH CARE/MEDICATION/REPOSITIONING. PATIENT EDUCATED ON THE IMPORTANCE ON REPOSITIONING TO PREVENT FURTHER COMPLICATIONS PATIENT CONTINUES TO REMOVE PILLOWS IS RESISTANT TO CARE. REPOSITION EVERY 2 HOURS OR NEEDED. PATIENT HAS POOR JUDGEMENT, POOR INSIGHT. PATIENT COMPLAINT WITH MEDICATION BED IN LOWEST POSITION, BED LOCKED, AND BED ALARM ON WHILE IN BED. ACCUCHECK 252 MG/DL NO SLIDING SCALE NOTED.
[2017-08-09] MEDS: BLOOD SUGAR DIAGNOSTIC 1 EACH STRIP VI SCH ×2 (06:37→11:30)
[2017-08-09 07:49] VITALS: BP 104/50
--- NOTE | 2017-08-09 08:13 | NUR ---
DC Note: Patient will discharge to [facility] [[address] [place] [address]; ] via ambulance at 12pm. SARAHI spoke with Jonatan at [facility] who confirmed discharge plans. Jonatan is aware of patient's wound on her foot and stated they are still able to accept her. Jonatan requested that patient continue receiving home health from [facility] [ ]. SARAHI spoke with patient's son Divya [[phone]] who is aware and agreeable to discharge plans. Patient will follow up with Dr. Cruz ([employer] Machine Operator). Patient does not currently have an assigned psychiatrist at the facility. Patient was provided a list of referrals for outpatient psychiatrists including Dr. Clark [[phone]], Dr. Dent [[phone]], and Dr. Rashid [[phone]]. Per Jonatan, Dr. Downey also works with their facility.
[2017-08-09 09:00] VITALS: BP 104/50
[2017-08-09] MEDS: FELODIPINE 2.5 MG TAB.SR.24H PO SCH (09:00)
[2017-08-09] MEDS: BENAZEPRIL HCL 20 MG TABLET PO SCH (09:00)
[2017-08-09] MEDS: QUETIAPINE FUMARATE 100 MG TABLET PO SCH (09:09)
[2017-08-09] MEDS: LINAGLIPTIN 5 MG TABLET PO SCH (09:09)
[2017-08-09] MEDS: glyBURIDE 5 MG TABLET PO SCH (09:10)
[2017-08-09] MEDS: METFORMIN HCL 500 MG TABLET PO SCH (09:10)
[2017-08-09] MEDS: ASPIRIN 81 MG TAB.CHEW PO SCH (09:10)
[2017-08-09] MEDS: Z GUARD REMEDY PASTE 57 GM TUBE TOP SCH (09:10)
--- NOTE | 2017-08-09 12:00 | NUR ---
GPS: Nursing Notes: Discharge Notes: Patient is awake and responding to her name, poor anger management, but compliant with her medications, resistant with nursing care, denies any SI/HI, denies any AH/VH, denies any pain or discomfort, denies any SOB, discharge to [facility] [place] [address] [place], [place] [id number] , report given to Belle Borro., prescriptions faxed to facility per [facility] request. SW spoke with patient's son Divya [[phone]] who is aware and agreeable to discharge plans. Patient will follow up with Dr. Cruz (Junior Electrical Engineer). Patient does not currently have an assigned psychiatrist at the facility. Patient was provided a list of referrals for outpatient psychiatrists including Dr. Clark [[phone]], Dr. Dent [[phone]], and Dr. Rashid [[phone]]. Per Jonatan, Dr. Downey also works with their facility, copy of order for [facility] for wound care sent to facility, transported to facility via ambulance, took all her belongings with her.
== END 2017-08-09 12:00 | DRG 885 ==
LOC: ER 13:17 → GPS 17:58 → GPSOV 07-24 21:43 → GPS 07-27 16:00 → GPSOV 07-28 20:59 → GPS 07-28 22:35
PROVIDERS: ADMIT Psychiatry & Neurology Psychiatry; ATTEND Internal Medicine
DX: F29 Unspecified psychosis not due to a substance or known physiological condition (principal); E11.65 Type 2 diabetes mellitus with hyperglycemia; G93.40 Encephalopathy, unspecified; L89.154 Pressure ulcer of sacral region, stage 4; E87.8 Other disorders of electrolyte and fluid balance, not elsewhere classified; E11.621 Type 2 diabetes mellitus with foot ulcer; L97.519 Non-pressure chronic ulcer of other part of right foot with unspecified severity; F03.90 Unspecified dementia, unspecified severity, without behavioral disturbance, psychotic disturbance, mood disturbance, and anxiety; D72.829 Elevated white blood cell count, unspecified; E78.5 Hyperlipidemia, unspecified; I10 Essential (primary) hypertension; Z73.6 Limitation of activities due to disability; Z79.84 Long term (current) use of oral hypoglycemic drugs; L98.8 Other specified disorders of the skin and subcutaneous tissue; L97.529 Non-pressure chronic ulcer of other part of left foot with unspecified severity
CPT/HCPCS: 36415; 71010; 73600; 83735; 84100; 85025; 87086; 93005; A4663; C1758; J1630